=== PATIENT | female | born 1980 | race Caucasian/White ===

== ENCOUNTER 2019-04-22 01:06 | Emergency (ER) | payer BC, MEDICAID ==
[~2019-04-22] VITALS: Ht 160 cm; Wt 73.0 kg
[~2019-04-22 01:06] MED LIST: FERR1TAB51; PRENATAL
[2019-04-22] MEDS ORDERED: IBUPROFEN 600MG TABLET PO ONE (03:45)
[2019-04-22 03:56] LABS: CLARITY URINE CLEAR (CLEAR); COLOR URINE YELLOW (YELLOW); KETONES URINE NEGATIVE (NEGATIVE); LEUKOCYTE ESTERASE URINE 1+ (NEGATIVE); NITRITE URINE NEGATIVE (NEGATIVE); OCCULT BLOOD URINE NEGATIVE (NEGATIVE); PROTEIN URINE NEGATIVE (NEGATIVE); SPECIFIC GRAVITY URINE 1.024 (1.005-1.030); UROBILINOGEN URINE 0.2 E.U./dL (0.2-1.0)
[2019-04-22 04:24] VITALS: BP 108/67
[2019-04-22] MEDS ORDERED: METHOCARBAMOL 750MG TABLET PO SCH (06:00)
== END 2019-04-22 04:25 | disposition home or self-care (01) ==
LOC: ER 01:06
DX: N39.0 Urinary tract infection, site not specified (principal); S39.012A Strain of muscle, fascia and tendon of lower back, initial encounter; Z90.49 Acquired absence of other specified parts of digestive tract; Z98.890 Other specified postprocedural states; X50.0XXA Overexertion from strenuous movement or load, initial encounter; Y93.B9 Activity, other involving muscle strengthening exercises; Y92.39 Other specified sports and athletic area as the place of occurrence of the external cause
CPT/HCPCS: 81003; 99283